=== PATIENT | female | born 1965 | race American Indian/Alaskan Native ===

== ENCOUNTER 2018-12-14 09:02 | Inpatient (IN) | payer MEDICARE ==
[2018-12-14] MEDS ORDERED: NACL 0.9% 500 ML 500 ML IV ONE (10:24)
[2018-12-14] MEDS ORDERED: ANTIVERT PO ONE (10:24)
[2018-12-14] MEDS ORDERED: ZOFRAN IV ONE (10:24)
--- NOTE | 2018-12-14 10:25 | Emergency Department Report ---
ED General Adult HPI - General Chief complaint: Dizziness Stated complaint: NAUSEA/VOMITING Time Seen by Provider: 12/14/18 10:11 Source: patient, EMS (ems notes not available at time of chart dictation), RN notes reviewed Mode of arrival: Stretcher Limitations: Physical Limitation - History of Present Illness Initial comments: This is a 53-year-old female. The patient is not known to this provider previously. The patient typically follows with Dr. Imtiaz Nguyen. Past medical history includes obesity, obstructive sleep apnea, or documented compliance with CPAP therapy, known history of right posterior cerebral artery aneurysm, 5 mm, previously monitored through physicians in the [facility], obesity. The patient presents to the emergency room today with complaints of dizziness, vertiginous dizziness, unsteady gait. She woke up with these symptoms at 7:30 AM. The patient denies headache, neck pain, chest pain, abdominal pain, shortness of breath. She denies tinnitus, and change in auditory acuity. She denies sore throat and cold symptoms. Her dizzy sensation is intermittent, painless, and does not radiate anywhere. She reports compliance with her medications. -: Sudden Consistency: intermittent Improves with: none Worsens with: none Associated Symptoms: nausea/vomiting - Related Data Home Medications Medication Instructions Recorded Confirmed Last Taken Atorvastatin Calcium [Lipitor] 20 mg PO QHS 06/07/15 12/14/18 Unknown cloNIDine [Catapres] 0.1 mg PO BID 06/07/15 12/14/18 Unknown Amlodipine Besylate [Norvasc] 2.5 mg PO BID 12/14/18 12/14/18 Unknown Carisoprodol [Soma] 350 mg PO DAILY 12/14/18 12/14/18 Unknown Diclofenac 1% 2 gm TP BID 12/14/18 12/14/18 Unknown Duloxetine HCl [Cymbalta] 30 mg PO BID 12/14/18 12/14/18 Unknown Gabapentin [Neurontin] 600 mg PO TID 12/14/18 12/14/18 Unknown Levothyroxine [Synthroid] 150 mcg PO QDAY 12/14/18 12/14/18 Unknown Pantoprazole [Protonix TAB] 40 mg PO QDAY 12/14/18 12/14/18 Unknown busPIRone [Buspar] 30 mg PO BID 12/14/18 12/14/18 Unknown traMADol [Ultram 50 MG tab] 50 mg PO QDAY PRN 12/14/18 12/14/18 Unknown traZODone [Desyrel] 100 mg PO QHS 12/14/18 12/14/18 Unknown Previous Rx's Medication Instructions Recorded Last Taken Type Ibuprofen 400 mg PO Q6H PRN #30 tablet 12/16/18 Unknown Rx Meclizine [Antivert] 25 mg PO TID PRN #20 tablet 12/16/18 Unknown Rx hydroCHLOROthiazide [HCTZ] 50 mg PO QDAY 30 Days tablet 12/16/18 Unknown Rx Allergies Allergy/AdvReac Type Severity Reaction Status Date / Time codeine Allergy Shortness Verified 08/08/14 14:01 of Breath oxycodone HCl [From Percocet] Allergy Hives Verified 08/08/14 14:01 Penicillins Allergy Hives Verified 08/08/14 14:01 Sulfa (Sulfonamide Allergy Hives Verified 08/08/14 14:01 Antibiotics) ED Review of Systems ROS: Stated complaint: NAUSEA/VOMITING Other details as noted in HPI Constitutional: malaise, weakness. denies: fever Eyes: denies: eye pain, eye discharge, vision change ENT: denies: ear pain, throat pain, dental pain, hearing loss, epistaxis, congestion Respiratory: denies: cough Cardiovascular: denies: chest pain Gastrointestinal: nausea. denies: abdominal pain, vomiting Genitourinary: denies: dysuria Musculoskeletal: denies: back pain Skin: denies: lesions Neurological: abnormal gait, vertigo. denies: headache, weakness Psychiatric: anxiety ED Past Medical Hx - Past Medical History Hx Hypertension: Yes Hx CVA: Yes Hx Congestive Heart Failure: No Hx Diabetes: No Hx Pulmonary Embolism: No Hx Sickle Cell Disease: No Hx Seizures: Yes Hx Asthma: No Hx COPD: No Hx Dementia: No Additional medical history: hypothyroid - Surgical History Additional Surgical History: tear duct, tubal ligation, c section, foot reconstruction - Social History Smoking Status: Never Smoker Substance Use Type: Alcohol - Medications Home Medications: Home Medications Medication Instructions Recorded Confirmed Last Taken Type Atorvastatin Calcium [Lipitor] 20 mg PO QHS 06/07/15 12/14/18 Unknown History cloNIDine [Catapres] 0.1 mg PO BID 06/07/15 12/14/18 Unknown History Amlodipine Besylate [Norvasc] 2.5 mg PO BID 12/14/18 12/14/18 Unknown History Carisoprodol [Soma] 350 mg PO DAILY 12/14/18 12/14/18 Unknown History Diclofenac 1% 2 gm TP BID 12/14/18 12/14/18 Unknown History Duloxetine HCl [Cymbalta] 30 mg PO BID 12/14/18 12/14/18 Unknown History Gabapentin [Neurontin] 600 mg PO TID 12/14/18 12/14/18 Unknown History Levothyroxine [Synthroid] 150 mcg PO QDAY 12/14/18 12/14/18 Unknown History Pantoprazole [Protonix TAB] 40 mg PO QDAY 12/14/18 12/14/18 Unknown History busPIRone [Buspar] 30 mg PO BID 12/14/18 12/14/18 Unknown History traMADol [Ultram 50 MG tab] 50 mg PO QDAY PRN 12/14/18 12/14/18 Unknown History traZODone [Desyrel] 100 mg PO QHS 12/14/18 12/14/18 Unknown History Ibuprofen 400 mg PO Q6H PRN #30 tablet 12/16/18 Unknown Rx Meclizine [Antivert] 25 mg PO TID PRN #20 tablet 12/16/18 Unknown Rx hydroCHLOROthiazide [HCTZ] 50 mg PO QDAY 30 Days tablet 12/16/18 Unknown Rx ED Physical Exam - General Limitations: Physical Limitation General appearance: alert, anxious, obese - Head Head exam: Present: atraumatic, normocephalic - Eye Eye exam: Present: normal appearance, PERRL, EOMI, nystagmus (there is multidirectional, non-fatigable nystagmus, horizontal, rotatory, and vertical.) - ENT ENT exam: Present: normal exam, normal orophraynx, mucous membranes moist, TM's normal bilaterally, normal external ear exam - Neck Neck exam: Present: normal inspection, full ROM. Absent: tenderness, meningismus - Respiratory Respiratory exam: Present: normal lung sounds bilaterally. Absent: respiratory distress - Cardiovascular Cardiovascular Exam: Present: regular rate, normal rhythm, normal heart sounds. Absent: bradycardia, tachycardia, irregular rhythm, systolic murmur, diastolic murmur, rubs, gallop - GI/Abdominal GI/Abdominal exam: Present: soft. Absent: distended, tenderness, guarding, rebound, rigid, pulsatile mass - Extremities Exam Extremities exam: Present: normal inspection, full ROM, pedal edema, other (2+ pulses noted in the bilateral upper, lower extremities. Compartments soft. No long bony tenderness. The pelvis is stable.). Absent: calf tenderness - Back Exam Back exam: Present: normal inspection, full ROM. Absent: tenderness, CVA tenderness (R), paraspinal tenderness, vertebral tenderness - Neurological Exam Neurological exam: Present: alert (there is no pass pointing in the bilateral upper extremities.), oriented X3, CN II-XII intact, abnormal gait (patient is not able to walk), other (Extraocular movements intact. Tongue midline. No facial droop. Facial sensation intact to light touch in the V1, V2, V3 distribution bilaterally. 5 and 5 strength in 4 extremities.. Sensation is intact to light touch in 4 extremities.). Absent: motor sensory deficit - Psychiatric Psychiatric exam: Present: normal affect, normal mood - Skin Skin exam: Present: warm, dry, intact, normal color. Absent: rash ED Course Vital Signs 12/14/18 12/14/18 12/14/18 09:14 09:16 09:19 Temperature 97.5 F L Pulse Rate 91 H 89 Respiratory 18 20 Rate Blood Pressure 149/90 Blood Pressure 149/90 [Left] O2 Sat by Pulse 95 94 93 Oximetry 12/14/18 12/14/18 12/14/18 09:30 09:46 10:00 Temperature Pulse Rate 92 H 91 H 88 Respiratory 19 17 16 Rate Blood Pressure 149/90 149/90 121/72 Blood Pressure [Left] O2 Sat by Pulse 92 91 91 Oximetry 12/14/18 12/14/18 12/14/18 10:01 10:16 10:37 Temperature Pulse Rate 93 H 91 H Respiratory 19 17 Rate Blood Pressure 121/72 121/72 121/72 Blood Pressure [Left] O2 Sat by Pulse 96 Oximetry 12/14/18 12/14/18 12/14/18 10:46 10:58 11:00 Temperature Pulse Rate Respiratory 17 13 13 Rate Blood Pressure 121/72 121/72 121/72 Blood Pressure [Left] O2 Sat by Pulse 97 97 98 Oximetry 12/14/18 12/14/18 12/14/18 11:16 11:20 11:30 Temperature Pulse Rate 91 H 87 91 H Respiratory 17 17 17 Rate Blood Pressure 138/82 121/72 121/72 Blood Pressure [Left] O2 Sat by Pulse 93 93 94 Oximetry 12/14/18 12/14/18 12/14/18 11:40 11:50 12:00 Temperature Pulse Rate Respiratory 16 15 16 Rate Blood Pressure 121/72 138/82 129/84 Blood Pressure [Left] O2 Sat by Pulse 95 94 95 Oximetry 12/14/18 12/14/18 12/14/18 12:10 13:44 13:50 Temperature Pulse Rate 110 H Respiratory 16 18 Rate Blood Pressure 129/84 129/84 172/101 Blood Pressure [Left] O2 Sat by Pulse 96 100 95 Oximetry 12/14/18 12/14/18 12/14/18 14:00 14:10 14:20 Temperature Pulse Rate 100 H 99 H 102 H Respiratory 18 17 15 Rate Blood Pressure 152/85 152/85 129/84 Blood Pressure [Left] O2 Sat by Pulse 93 95 95 Oximetry 12/14/18 12/14/18 12/14/18 14:30 14:54 15:00 Temperature Pulse Rate 106 H Respiratory 18 Rate Blood Pressure 129/84 129/84 129/84 Blood Pressure [Left] O2 Sat by Pulse 97 98 95 Oximetry 12/14/18 12/14/18 12/14/18 15:10 15:20 15:30 Temperature Pulse Rate Respiratory Rate Blood Pressure 129/84 129/84 152/85 Blood Pressure [Left] O2 Sat by Pulse 95 95 93 Oximetry 12/14/18 12/14/18 15:40 15:50 Temperature Pulse Rate 104 H Respiratory 20 Rate Blood Pressure 152/85 142/93 Blood Pressure [Left] O2 Sat by Pulse 94 93 Oximetry - Reevaluation(s) Reevaluation #1: 12/14/18 12:04 Differential diagnosis, including but not limited to: Peripheral vertigo, central vertigo, arterial dissection, arterial insufficiency, arterial thrombosis Assessment and plan: 53-year-old female who woke up with sensation of vertigo and unsteady gait, with what appears to be multidirectional non-fatigable nystagmus. The patient has an NIH score of 0. The patient is not a TPA candidate as she woke up with symptoms. Code stroke is called overhead. Noncontrast CT scan of the brain is negative for acute disease. She is treated with meclizine, fluids and Zofran. Discussed with consulting stroke neurology, Dr. Mai Treviño, who agrees that patient is not a TPA candidate, but recommends admission for stroke evaluation, and agrees with acquisition of emergent angiogram of the head and neck to exclude a large vessel occlusion, and dissection. Reevaluation #2: 12/14/18 13:48 Dr Michael Sheppard to admit cta head neck negative ED Medical Decision Making - Lab Data Result diagrams: 12/14/18 10:38 12/16/18 04:28 Vital Signs 12/14/18 12/14/18 12/14/18 09:14 09:16 09:19 Temperature 97.5 F L Pulse Rate 91 H 89 Respiratory 18 20 Rate Blood Pressure 149/90 Blood Pressure 149/90 [Left] O2 Sat by Pulse 95 94 93 Oximetry 12/14/18 12/14/18 12/14/18 09:30 09:46 10:00 Temperature Pulse Rate 92 H 91 H 88 Respiratory 19 17 16 Rate Blood Pressure 149/90 149/90 121/72 Blood Pressure [Left] O2 Sat by Pulse 92 91 91 Oximetry 12/14/18 12/14/18 12/14/18 10:16 10:37 10:46 Temperature Pulse Rate 93 H 91 H Respiratory 19 17 17 Rate Blood Pressure 121/72 121/72 121/72 Blood Pressure [Left] O2 Sat by Pulse 96 97 Oximetry 12/14/18 12/14/18 11:00 11:16 Temperature Pulse Rate 89 Respiratory 13 17 Rate Blood Pressure 121/72 138/82 Blood Pressure [Left] O2 Sat by Pulse 98 95 Oximetry Lab Results 12/14/18 12/14/18 12/14/18 Range/Units 10:38 10:38 10:38 WBC 4.7 (4.5-11.0) K/mm3 RBC 4.30 (3.65-5.03) M/mm3 Hgb 13.0 (10.1-14.3) gm/dl Hct 37.4 (30.3-42.9) % MCV 87 (79-97) fl MCH 30 (28-32) pg MCHC 35 H (30-34) % RDW 15.3 H (13.2-15.2) % Plt Count 212 (140-440) K/mm3 Lymph % (Auto) 20.2 (13.4-35.0) % [place] % (Auto) 7.6 H (0.0-7.3) % Eos % (Auto) 1.2 (0.0-4.3) % Baso % (Auto) 0.6 (0.0-1.8) % Lymph # 1.0 L (1.2-5.4) K/mm3 [place] # 0.4 (0.0-0.8) K/mm3 Eos # 0.1 (0.0-0.4) K/mm3 Baso # 0.0 (0.0-0.1) K/mm3 Seg Neutrophils % 70.4 H (40.0-70.0) % Seg Neutrophils # 3.3 (1.8-7.7) K/mm3 PT 13.1 (12.2-14.9) Sec. INR 0.94 (0.87-1.13) APTT 33.0 (24.2-36.6) Sec. Thrombin Time 17.2 (15.1-19.6) Sec. Sodium (137-145) mmol/L Potassium (3.6-5.0) mmol/L Chloride (98-107) mmol/L Carbon Dioxide (22-30) mmol/L Anion Gap mmol/L BUN (7-17) mg/dL Creatinine (0.7-1.2) mg/dL Estimated GFR ml/min BUN/Creatinine Ratio % Glucose (65-100) mg/dL Calcium (8.4-10.2) mg/dL Total Bilirubin (0.1-1.2) mg/dL AST (5-40) units/L ALT (7-56) units/L Alkaline Phosphatase (35-129) units/L Total Creatine Kinase 183 H (30-135) units/L CK-MB (CK-2) 3.6 (0.0-4.0) ng/mL CK-MB (CK-2) Rel Index 1.9 (0-4) Troponin T < 0.010 (0.00-0.029) ng/mL Total Protein (6.3-8.2) g/dL Albumin (3.9-5) g/dL Albumin/Globulin Ratio % 12/14/ Range/Units 10:38 WBC (4.5-11.0) K/mm3 RBC (3.65-5.03) M/mm3 Hgb (10.1-14.3) gm/dl Hct (30.3-42.9) % MCV (79-97) fl MCH (28-32) pg MCHC (30-34) % RDW (13.2-15.2) % Plt Count (140-440) K/mm3 Lymph % (Auto) (13.4-35.0) % [place] % (Auto) (0.0-7.3) % Eos % (Auto) (0.0-4.3) % Baso % (Auto) (0.0-1.8) % Lymph # (1.2-5.4) K/mm3 [place] # (0.0-0.8) K/mm3 Eos # (0.0-0.4) K/mm3 Baso # (0.0-0.1) K/mm3 Seg Neutrophils % (40.0-70.0) % Seg Neutrophils # (1.8-7.7) K/mm3 PT (12.2-14.9) Sec. INR (0.87-1.13) APTT (24.2-36.6) Sec. Thrombin Time (15.1-19.6) Sec. Sodium 138 (137-145) mmol/L Potassium 3.4 L (3.6-5.0) mmol/L Chloride 101.1 (98-107) mmol/L Carbon Dioxide 27 (22-30) mmol/L Anion Gap 13 mmol/L BUN 12 (7-17) mg/dL Creatinine 0.6 L (0.7-1.2) mg/dL Estimated GFR > 60 ml/min BUN/Creatinine Ratio 20 % Glucose 128 H (65-100) mg/dL Calcium 8.8 (8.4-10.2) mg/dL Total Bilirubin 0.20 (0.1-1.2) mg/dL AST 17 (5-40) units/L ALT 16 (7-56) units/L Alkaline Phosphatase 74 (35-129) units/L Total Creatine Kinase (30-135) units/L CK-MB (CK-2) (0.0-4.0) ng/mL CK-MB (CK-2) Rel Index (0-4) Troponin T (0.00-0.029) ng/mL Total Protein 7.6 (6.3-8.2) g/dL Albumin 3.8 L (3.9-5) g/dL Albumin/Globulin Ratio 1.0 % - EKG Data -: EKG Interpreted by Me EKG shows normal: sinus rhythm Rate: normal - EKG Data 12/14/18 12:06 Sinus, 90 bpm, normal axis, QTC prolonged, low voltage in the lateral leads, not having chest pain, left ventricular hypertrophy, not consistent with ST elevation myocardial infarction. EKG today appears to be grossly unchanged from prior EKG from June 2015. - Radiology Data Radiology results: pending, report reviewed, image reviewed Critical care attestation.: If time is entered above; I have spent that time in minutes in the direct care of this critically ill patient, excluding procedure time. ED Disposition Clinical Impression: Unsteady gait Disposition: -09 OP ADMIT IP TO THIS HOSP Is pt being admited?: Yes Does the pt Need Aspirin: Yes Condition: Good
--- NOTE | 2018-12-14 10:40 | Cat Scan Report ---
CT HEAD WITHOUT CONTRAST: HISTORY: Stroke symptoms. TECHNIQUE: Sequential 2.5mm CT images. COMPARISON: 06/07/15. FINDINGS: Cerebral Parenchyma: Within normal limits. Cerebellum: Within normal limits. Brainstem: Within normal limits. Ventricles: Normal. Sella: Normal. Extra-axial spaces: Normal. Basal Cisterns: Normal. Intracranial Hemorrhage: None. Midline Shift: None. Calvarium: Normal. Sinuses: There is near-complete opacification of the right frontal sinus. The remaining visualized sinuses are clear. Mastoid Air Cells: Normal. Visualized Orbits: Normal. IMPRESSION: Cranial CT scan within normal limits. Chronic right frontal sinus disease. These findings were discussed with Dr. Hernandez in the emergency department at 1035 hrs.
[2018-12-14 10:49] LABS: Basophils % (Auto) 0.6 % (0.0-1.8); Eosinophils # (Auto) 0.1 K/mm3 (0.0-0.4); Eosinophils % (Auto) 1.2 % (0.0-4.3); Hematocrit 37.4 % (30.3-42.9); Lymphocytes % (Auto) 20.2 % (13.4-35.0); Mean Corpuscular HGB Conc 35 % (30-34); Mean Corpuscular Volume 87 fl (79-97); Monocytes # (Auto) 0.4 K/mm3 (0.0-0.8); Monocytes % (Auto) 7.6 % (0.0-7.3); Platelet Count 212 K/mm3 (140-440); Red Cell Distribution Width 15.3 % (13.2-15.2)
[2018-12-14 10:59] LABS: INR 0.94 (0.87-1.13)
[2018-12-14 11:00] LABS: Thrombin Time 17.2 Sec. (15.1-19.6)
[2018-12-14 11:20] LABS: Creatine Kinase MB 3.6 ng/mL (0.0-4.0)
[2018-12-14 11:21] LABS: Alanine Aminotransferase 16 units/L (7-56); Albumin 3.8 g/dL (3.9-5); BUN/Creatinine Ratio 20; Blood Urea Nitrogen 12 mg/dL (7-17); Calcium 8.8 mg/dL (8.4-10.2); Hemolysis Index 3
[2018-12-14] MEDS ORDERED: KCL 20MEQ/100ML 20 MEQ/100 ML BAG IV ONE (12:06)
[2018-12-14] MEDS ORDERED: REGLAN IV ONE (12:29)
--- NOTE | 2018-12-14 13:23 | Cat Scan Report ---
CTA NECK: HISTORY: Stroke. TECHNIQUE: Helical CT following IV contrast. Sagittal and coronal reformatted images. Rotational MIP images. Stenosis was calculated using NASCET criteria with the distal ICA being standard diameter. FINDINGS: The visualized aortic arch, innominate artery and proximal bilateral subclavian arteries are widely patent with less than 20% stenosis. Within the right carotid system: Less than 20% stenosis. Within the left carotid system: Less than 20% stenosis. The cervical vertebral arteries are patent with less than 20% stenosis. IMPRESSION: Unremarkable CTA of the neck.
--- NOTE | 2018-12-14 13:27 | Cat Scan Report ---
CTA HEAD: HISTORY: Stroke symptoms. TECHNIQUE: Helical CT images after IV contrast with 2.5mm reformations. Sagittal and coronal reformats. Rotational MIP images. 3D volume rendering technique. FINDINGS: The arterial structures of the anterior and posterior circulations are patent throughout. No evidence for stenosis, occlusion or aneurysm. IMPRESSION: Unremarkable CTA head.
[2018-12-14] MEDS ORDERED: BABY ASPIRIN PO ONE (13:49)
[2018-12-14] MEDS: KCL 10MEQ/100ML 10 MEQ/100 ML BAG IV SCH ×2 (14:09→15:44)
[2018-12-14] MEDS ORDERED: ULTRAM PO PRN (16:42)
[2018-12-14] MEDS: SYNTHROID PO SCH (17:00)
[2018-12-14] MEDS: SOMA PO SCH (19:02)
[2018-12-14] MEDS: HCTZ PO SCH (19:02)
[2018-12-14] MEDS: PROTONIX PO SCH (19:02)
[2018-12-14] MEDS ORDERED: NON-FORMULARY (Gabapentin [Neurontin] 600 MG) PO SCH (20:00)
[2018-12-14] MEDS ORDERED: NON-FORMULARY (Amlodipine Besylate [Norvasc] 2.5 MG) PO SCH (22:00)
[2018-12-14] MEDS: BUSPAR PO SCH (22:08)
[2018-12-14] MEDS: NEURONTIN PO SCH (22:08)
[2018-12-14] MEDS: NORVASC PO SCH (22:09)
[2018-12-14] MEDS: CATAPRES PO SCH (22:09)
[2018-12-14] MEDS: DESYREL PO SCH (22:09)
[2018-12-14] MEDS: CYMBALTA PO SCH (22:24)
[2018-12-14] MEDS ORDERED: ZOFRAN IV PRN (22:43)
[2018-12-14] MEDS ORDERED: SODIUM CHLORIDE FLUSH SYRINGE 10 ML IV PRN ×2 (22:43→22:47)
[2018-12-14] MEDS ORDERED: PERCOCET 5/325 PO PRN (22:43)
[2018-12-14] MEDS ORDERED: DILAUDID IV PRN (22:43)
[2018-12-14] MEDS ORDERED: TYLENOL PO PRN (22:43)
--- NOTE | 2018-12-14 23:32 | History and Physical Report ---
History of Present Illness Date of examination: 12/14/18 Date of admission: 12/14/18 14:43 Chief complaint: Dizziness and unsteady gait since morning History of present illness: 53-year-old female with history of hypertension hyperlipidemia and depression comes in for acute onset of dizziness and unsteady gait since a.m. Patient woke up around 7:30 AM and had severe dizziness with feeling of room spinning around. Also unsteady gait like a drunken woman. No nasal regurgitation of fluids. No diplopia. No dysphagia or dysphonia. Patient vomited couple of times since morning. Patient is on CPAP for sleep apnea. 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 Past Medical History Hypertension: Yes CVA: Yes no residual deficits Seizures: Yes Additional medical history: hypothyroid Surgical History Additional Surgical History: tear duct surgery, tubal ligation, c section, foot reconstruction Social History Smoking Status: Never Smoker Substance Use Type: Alcohol Family history HTN -Medications Home Medications: Home Medications Medication Instructions Recorded Confirmed Last Taken Type ALPRAZolam [Xanax TAB] 0.5 mg PO DAILY PRN 06/07/15 06/07/15 Unknown History Atorvastatin Calcium [Lipitor] 20 mg PO QHS 06/07/15 06/07/15 Unknown History Gabapentin [Neurontin] 300 mg PO QHS 06/07/15 06/07/15 Unknown History NIFEdipine XL [Procardia Xl] 30 mg PO QDAY 06/07/15 06/07/15 Unknown History cloNIDine [Catapres] 0.1 mg PO BID 06/07/15 06/07/15 Unknown History traZODone [Desyrel] 50 mg PO QHS 06/07/15 06/07/15 Unknown History Aspirin [Aspirin TAB] 325 mg PO QDAY #30 tablet 06/11/15 Unknown Rx traMADol [Ultram 50 MG tab] 50 mg PO Q6HR PRN #10 tablet 06/11/15 Unknown Rx Azithromycin [Zithromax] 250 mg PO QDAY #4 tablet 06/12/15 Unknown Rx Review of Systems ROS: Stated complaint: NAUSEA/VOMITING Other details as noted in HPI Constitutional: malaise, weakness. denies: fever Eyes: denies: eye pain, eye discharge, vision change ENT: denies: ear pain, throat pain, dental pain, hearing loss, epistaxis, conge stion Respiratory: denies: cough Cardiovascular: denies: chest pain Gastrointestinal: nausea. denies: abdominal pain, vomiting Genitourinary: denies: dysuria Musculoskeletal: denies: back pain Skin: denies: lesions Neurological: abnormal gait, vertigo. denies: headache, weakness Psychiatric: anxiety Medications and Allergies Allergies Allergy/AdvReac Type Severity Reaction Status Date / Time acetaminophen [From Percocet] Allergy Hives Verified 08/08/14 14:01 codeine Allergy Shortness Verified 08/08/14 14:01 of Breath oxycodone HCl [From Percocet] Allergy Hives Verified 08/08/14 14:01 Penicillins Allergy Hives Verified 08/08/14 14:01 Sulfa (Sulfonamide Allergy Hives Verified 08/08/14 14:01 Antibiotics) Home Medications Medication Instructions Recorded Confirmed Last Taken Type Atorvastatin Calcium [Lipitor] 20 mg PO QHS 06/07/15 12/14/18 Unknown History cloNIDine [Catapres] 0.1 mg PO BID 06/07/15 12/14/18 Unknown History Amlodipine Besylate [Norvasc] 2.5 mg PO BID 12/14/18 12/14/18 Unknown History Carisoprodol [Soma] 350 mg PO DAILY 12/14/18 12/14/18 Unknown History Diclofenac 1% 2 gm TP BID 12/14/18 12/14/18 Unknown History Duloxetine HCl [Cymbalta] 30 mg PO BID 12/14/18 12/14/18 Unknown History Gabapentin [Neurontin] 600 mg PO TID 12/14/18 12/14/18 Unknown History Levothyroxine [Synthroid] 150 mcg PO QDAY 12/14/18 12/14/18 Unknown History Pantoprazole [Protonix] 40 mg PO QDAY 12/14/18 12/14/18 Unknown History busPIRone [Buspar] 30 mg PO BID 12/14/18 12/14/18 Unknown History hydroCHLOROthiazide [HCTZ] 25 mg PO QDAY 12/14/18 12/14/18 Unknown History traMADol [Ultram 50 MG tab] 50 mg PO QDAY PRN 12/14/18 12/14/18 Unknown History traZODone [Desyrel] 100 mg PO QHS 12/14/18 12/14/18 Unknown History Active Meds: Active Medications Acetaminophen (Tylenol) 650 mg PO Q4H PRN PRN Reason: Pain MILD(1-3)/Fever >100.5/BURT Amlodipine Besylate (Norvasc) 2.5 mg PO BID [facility] Last Admin: 12/14/18 22:09 Dose: 2.5 mg Documented by: Aspirin (Aspirin) 325 mg PO QDAY [facility] Atorvastatin Calcium (Lipitor) 20 mg PO QHS [facility] Last Admin: 12/14/18 22:08 Dose: 20 mg Documented by: Atorvastatin Calcium (Lipitor) 40 mg PO QHS [facility] Buspirone HCl (Buspar) 30 mg PO BID [facility] Last Admin: 12/14/18 22:08 Dose: 30 mg Documented by: Carisoprodol (Soma) 350 mg PO DAILY [facility] Last Admin: 12/14/18 19:02 Dose: 350 mg Documented by: Clonidine HCl (Catapres) 0.1 mg PO BID [facility] Last Admin: 12/14/18 22:09 Dose: 0.1 mg Documented by: Duloxetine HCl (Cymbalta) 30 mg PO BID [facility] Last Admin: 12/14/18 22:24 Dose: 30 mg Documented by: Enoxaparin Sodium (Lovenox) 40 mg SUB-Q QDAY [facility] Famotidine (Pepcid) 20 mg IV BID [facility] Gabapentin (Neurontin) 300 mg PO TID [facility] Last Admin: 12/14/18 22:08 Dose: 300 mg Documented by: Hydrochlorothiazide (Hctz) 25 mg PO QDAY [facility] Last Admin: 12/14/18 19:02 Dose: 25 mg Documented by: Hydromorphone HCl (Dilaudid) 0.5 mg IV Q3H PRN PRN Reason: Pain , Severe (7-10) Dextrose/Sodium Chloride (D5ns) 1,000 mls @ 100 mls/hr IV DIRECT [facility] Levothyroxine Sodium (Synthroid) 150 mcg PO QDAY [facility] Last Admin: 12/14/18 17:00 Dose: Not Given Documented by: Ondansetron HCl (Zofran) 4 mg IV Q8H PRN PRN Reason: Nausea And Vomiting Oxycodone/Acetaminophen (Percocet 5/325) 1 tab PO Q6H PRN PRN Reason: Pain, Moderate (4-6) Pantoprazole Sodium (Protonix) 40 mg PO QDAY [facility] Last Admin: 12/14/18 19:02 Dose: 40 mg Documented by: Sodium Chloride (Sodium Chloride Flush Syringe 10 Ml) 10 ml IV BID [facility] Sodium Chloride (Sodium Chloride Flush Syringe 10 Ml) 10 ml IV PRN PRN PRN Reason: LINE FLUSH Sodium Chloride (Sodium Chloride Flush Syringe 10 Ml) 10 ml IV PRN PRN PRN Reason: LINE FLUSH Tramadol HCl (Ultram) 50 mg PO QDAY PRN PRN Reason: Pain Trazodone HCl (Desyrel) 100 mg PO QHS [facility] Last Admin: 12/14/18 22:09 Dose: 100 mg Documented by: Exam - Constitutional Vitals: Temp Pulse Resp BP Pulse Ox 97.7 F 89 18 146/90 100 12/14/18 18:04 12/14/18 22:09 12/14/18 18:04 12/14/18 22:09 12/14/18 19:51 General appearance: Present: no acute distress, well-nourished - EENT Eyes: Present: PERRL ENT: hearing intact, clear oral mucosa - Neck Neck: Present: supple, normal ROM - Respiratory Respiratory effort: normal Respiratory: bilateral: CTA - Cardiovascular Heart rate: 90 Rhythm: regular Heart Sounds: Present: S1 & S2. Absent: rub, click - Extremities Extremities: pulses symmetrical, No edema Peripheral Pulses: within normal limits - Abdominal General gastrointestinal: Present: soft, non-tender, non-distended, normal bowel sounds Female genitourinary: Present: normal - Rectal Rectal Exam: deferred - Integumentary Integumentary: Present: clear, warm, dry - Musculoskeletal Musculoskeletal: gait normal, strength equal bilaterally - Psychiatric Psychiatric: appropriate mood/affect, intact judgment & insight - Neurologic Neurologic: CNII-XII intact (no cranial nerve deficits), moves all extremities, other (unsteady gait) - Allied Health Allied health notes reviewed: nursing, case management Results - Labs CBC & Chem 7: 12/14/18 10:38 12/14/18 10:38 Labs: Laboratory Last Values WBC 4.7 K/mm3 (4.5-11.0) 12/14/18 10:38 RBC 4.30 M/mm3 (3.65-5.03) 12/14/18 10:38 Hgb 13.0 gm/dl (10.1-14.3) 12/14/18 10:38 Hct 37.4 % (30.3-42.9) 12/14/18 10:38 MCV 87 fl (79-97) 12/14/18 10:38 MCH 30 pg (28-32) 12/14/18 10:38 MCHC 35 % (30-34) H 12/14/18 10:38 RDW 15.3 % (13.2-15.2) H 12/14/18 10:38 Plt Count 212 K/mm3 (140-440) 12/14/18 10:38 Lymph % (Auto) 20.2 % (13.4-35.0) 12/14/18 10:38 [place] % (Auto) 7.6 % (0.0-7.3) H 12/14/18 10:38 Eos % (Auto) 1.2 % (0.0-4.3) 12/14/18 10:38 Baso % (Auto) 0.6 % (0.0-1.8) 12/14/18 10:38 Lymph # 1.0 K/mm3 (1.2-5.4) L 12/14/18 10:38 [place] # 0.4 K/mm3 (0.0-0.8) 12/14/18 10:38 Eos # 0.1 K/mm3 (0.0-0.4) 12/14/18 10:38 Baso # 0.0 K/mm3 (0.0-0.1) 12/14/18 10:38 Seg Neutrophils % 70.4 % (40.0-70.0) H 12/14/18 10:38 Seg Neutrophils # 3.3 K/mm3 (1.8-7.7) 12/14/18 10:38 PT 13.1 Sec. (12.2-14.9) 12/14/18 10:38 INR 0.94 (0.87-1.13) 12/14/18 10:38 APTT 33.0 Sec. (24.2-36.6) 12/14/18 10:38 Thrombin Time 17.2 Sec. (15.1-19.6) 12/14/18 10:38 Sodium 138 mmol/L (137-145) 12/14/18 10:38 Potassium 3.4 mmol/L (3.6-5.0) L 12/14/18 10:38 Chloride 101.1 mmol/L (98-107) 12/14/18 10:38 Carbon Dioxide 27 mmol/L (22-30) 12/14/18 10:38 Anion Gap 13 mmol/L 12/14/18 10:38 BUN 12 mg/dL (7-17) 12/14/18 10:38 Creatinine 0.6 mg/dL (0.7-1.2) L 12/14/18 10:38 Estimated GFR > 60 ml/min 12/14/18 10:38 BUN/Creatinine Ratio 20 % 12/14/18 10:38 Glucose 128 mg/dL (65-100) H 12/14/18 10:38 POC Glucose 128 (70-105) H 12/14/18 10:29 Calcium 8.8 mg/dL (8.4-10.2) 12/14/18 10:38 Total Bilirubin 0.20 mg/dL (0.1-1.2) 12/14/18 10:38 AST 17 units/L (5-40) 12/14/18 10:38 ALT 16 units/L (7-56) 12/14/18 10:38 Alkaline Phosphatase 74 units/L (35-129) 12/14/18 10:38 Total Creatine Kinase 183 units/L (30-135) H 12/14/18 10:38 CK-MB (CK-2) 3.6 ng/mL (0.0-4.0) 12/14/18 10:38 CK-MB (CK-2) Rel Index 1.9 (0-4) 12/14/18 10:38 Troponin T < 0.010 ng/mL (0.00-0.029) 12/14/18 10:38 Total Protein 7.6 g/dL (6.3-8.2) 12/14/18 10:38 Albumin 3.8 g/dL (3.9-5) L 12/14/18 10:38 Albumin/Globulin Ratio 1.0 % 12/14/18 10:38 Short CBC 12/14/18 Range/Units 10:38 WBC 4.7 (4.5-11.0) K/mm3 Hgb 13.0 (10.1-14.3) gm/dl Hct 37.4 (30.3-42.9) % Plt Count 212 (140-440) K/mm3 BMP 12/14/18 10:38 Sodium 138 Potassium 3.4 L Chloride 101.1 Carbon Dioxide 27 BUN 12 Creatinine 0.6 L Glucose 128 H Calcium 8.8 Cardiac Enzymes 12/14/18 Range/Units 10:38 Total Creatine Kinase 183 H (30-135) units/L CK-MB (CK-2) 3.6 (0.0-4.0) ng/mL Troponin T < 0.010 (0.00-0.029) ng/mL Liver Function 12/14/18 Range/Units 10:38 Total Bilirubin 0.20 (0.1-1.2) mg/dL AST 17 (5-40) units/L ALT 16 (7-56) units/L Alkaline Phosphatase 74 (35-129) units/L Albumin 3.8 L (3.9-5) g/dL - Imaging and Cardiology EKG: report reviewed (normal sinus rhythm ,heart rate of 90/m) Imaging and Cardiology: CTA of the neck Unremarkable CTA head Unremarkable CT head There is near complete opacification of the right frontal sinus the remaining visualized sinuses are clear. Assessment and Plan Advance Directives: Yes (full code) VTE prophylaxis?: Chemical Plan of care discussed with patient/family: Yes - Patient Problems (1) CVA (cerebral infarction) Current Visit: No Status: Acute Qualifiers: Cerebral infarction mechanism: thrombosis Precerebral and cerebral artery: posterior cerebral artery, right Qualified Code(s): I63.331 - Cerebral infarction due to thrombosis of right posterior cerebral artery Plan to address problem: Teleneurology consulted The recommendation was to do an MRI of the brain. Differential diagnosis was BPV and they suggested meclizine. They also suggested in house neurology consult CVA protocol including MRI/MRA echocardiogram and carotid duplex scan ordered Aspirin initiated Differential diagnoses of cerebrovascular accident versus BPV Patient does not have any diplopia nasal regurgitation of fluids or dysphagia ruling out posterior inferior cerebellar artery infarct (2) BPV (benign positional vertigo) Current Visit: Yes Status: Acute Qualifiers: Laterality: unspecified laterality Qualified Code(s): H81.10 - Benign paroxysmal vertigo, unspecified ear Plan to address problem: Meclizine initiated High likelihood of BPV (3) Obstructive sleep apnea of adult Onset Date: 06/07/15 Current Visit: No Status: Chronic Plan to address problem: Continue CPAP (4) Hypertension Current Visit: Yes Status: Chronic Qualifiers: Hypertension type: essential hypertension Qualified Code(s): I10 - Essential (primary) hypertension Plan to address problem: Continue antihypertensives (5) Hypothyroidism Current Visit: Yes Status: Chronic Qualifiers: Hypothyroidism type: acquired Qualified Code(s): E03.9 - Hypothyroidism, unspecified Plan to address problem: Continue Synthroid Check TSH (6) Peripheral neuropathy Current Visit: Yes Status: Chronic Qualifiers: Peripheral neuropathy type: polyneuropathy, unspecified Qualified Code(s): G62.9 - Polyneuropathy, unspecified Plan to address problem: Continue gabapentin (7) RADHA (generalized anxiety disorder) Current Visit: Yes Status: Chronic Plan to address problem: Continue BuSpar (8) Depression Current Visit: Yes Status: Chronic Qualifiers: Depression Type: unspecified Qualified Code(s): F32.9 - Major depressive disorder, single episode, unspecified Plan to address problem: Continue Cymbalta (9) GERD (gastroesophageal reflux disease) Current Visit: Yes Status: Chronic Qualifiers: Esophagitis presence: without esophagitis Qualified Code(s): K21.9 - Gastro-esophageal reflux disease without esophagitis Plan to address problem: Continue Protonix (10) Hypokalemia Current Visit: Yes Status: Acute Plan to address problem: Mild Supplemented (11) DVT prophylaxis Current Visit: Yes Status: Acute Plan to address problem: Lovenox initiated and GI prophylaxis initiated
[2018-12-15] MEDS ORDERED: TYLENOL PO PRN (00:02)
[2018-12-15] MEDS ORDERED: ZOFRAN IV PRN (00:02)
[2018-12-15] MEDS ORDERED: SODIUM CHLORIDE FLUSH SYRINGE 10 ML IV PRN (00:02)
[2018-12-15] MEDS ORDERED: K-DUR PO ONE (00:04)
[2018-12-15] MEDS: D5NS 1,000 ML IV SCH ×2 (00:38→09:11)
[2018-12-15] MEDS: PEPCID IV SCH ×3 (00:39→22:27)
[2018-12-15] MEDS ORDERED: PERCOCET 5/325 PO PRN (01:12)
[2018-12-15 02:36] LABS: Alanine Aminotransferase 17 units/L (7-56); Albumin 4.2 g/dL (3.9-5); BUN/Creatinine Ratio 12; Blood Urea Nitrogen 7 mg/dL (7-17); Calcium 8.9 mg/dL (8.4-10.2); Hemolysis Index 5; LDL Cholesterol,Direct 104 mg/dL (50-130)
[2018-12-15 04:07] LABS: Chol/HDL Ratio 2.38 %; HDL Cholesterol 75 mg/dL (40-59)
[2018-12-15] MEDS: NEURONTIN PO SCH ×3 (08:57→22:27)
[2018-12-15] MEDS: SYNTHROID PO SCH (09:00)
[2018-12-15] MEDS: SOMA PO SCH (09:00)
[2018-12-15] MEDS: BUSPAR PO SCH ×2 (09:01→22:26)
[2018-12-15] MEDS: PROTONIX PO SCH (09:02)
[2018-12-15] MEDS: LOVENOX SUB-Q SCH (09:02)
[2018-12-15] MEDS: ASPIRIN PO SCH (09:03)
[2018-12-15] MEDS: SODIUM CHLORIDE FLUSH SYRINGE 10 ML IV SCH ×4 (09:05→23:09)
[2018-12-15] MEDS: HCTZ PO SCH (09:37)
[2018-12-15] MEDS: NORVASC PO SCH ×2 (09:37→22:28)
[2018-12-15] MEDS: CATAPRES PO SCH ×2 (09:37→22:29)
[2018-12-15] MEDS: CYMBALTA PO SCH ×2 (09:39→23:14)
--- NOTE | 2018-12-15 11:04 | Magnetic Resonance Report ---
MRA HEAD WITHOUT CONTRAST HISTORY: Stroke. Blpb-mr-[id number] imaging with MIP reformations of the [place] is submitted. The arteries appear widely patent and free of hemodynamically significant stenosis, aneurysm or dissection. IMPRESSION: Unremarkable MRA head.
--- NOTE | 2018-12-15 11:04 | Magnetic Resonance Report ---
MRI OF THE BRAIN WITHOUT CONTRAST: HISTORY: Stroke PROCEDURE: Multiplanar, multisequence MR imaging of the brain without IV contrast was performed. FINDINGS: Compared to the CT head dated 12/14/18. MRI demonstrates mild nonspecific white matter changes. Otherwise, the remaining brain parenchyma signal intensity and its wolfe white interface are within normal limits on all sequences. No evidence for acute ischemia, hemorrhage or mass. No chronic infarct or extra-axial fluid collection. The midline structures are central. The basal cisterns are patent. Normal ventricular size. The orbital cavities and sella turcica demonstrate no abnormality. The visualized paranasal sinuses and mastoid air cells are well aerated. IMPRESSION: Unremarkable non-enhanced MRI of the brain.
--- NOTE | 2018-12-15 12:29 | Vascular Lab Report ---
PROCEDURE: VL CAROTID DUPLEX BILAT TECHNIQUE: Duplex Doppler ultrasound of the common, internal and external carotid arteries and the v ertebral arteries was performed bilaterally. [place] scale imaging, velocity spectral waveform analysis, and color flow Doppler were employed. HISTORY: stroke COMPARISONS: CTA neck December 14, 2018 . Note: Measurement of carotid stenosis is based on flow velocity values that correlate with the [place] Symptomatic Carotid Endarterectomy Trial (NASCET) based stenosis criteria using the internal carotid artery diameter as the denominator for stenosis calculation. FINDINGS: RIGHT carotid artery: Velocities: ICA PSV: 92 cm/sec ICA End diastolic: 26 cm/sec CCA PSV: 115 cm/sec IC/CC ratio: 0.6 8 Plaque/color flow: No significant plaque without significant spectral broadening or abnormal color f low . RIGHT vertebral artery: Antegrade systolic and diastolic flow LEFT carotid artery: Velocities: ICA PSV: 82 cm/sec ICA End diastolic: 37 cm/sec CCA PSV: 120 cm/sec IC/CC ratio: 0.6 8 Plaque/color flow: No significant plaque without significant spectral broadening or abnormal color f low . LEFT vertebral artery: Antegrade systolic and diastolic flow IMPRESSION: 1. RIGHT carotid: No hemodynamically significant (less than 50 percent) internal carotid artery beulah nosis. 2. LEFT carotid: No hemodynamically significant (less than 50 percent) internal carotid artery sten osis. 3. Vertebral arteries: Bilaterally antegrade. This document is electronically signed by Yagn Young MD., December 15 2018 12:27:18 PM ET
[2018-12-15] MEDS: K-DUR PO SCH ×2 (13:54→18:11)
[2018-12-15] MEDS: ANTIVERT PO PRN (14:51)
[2018-12-15] MEDS: TYLENOL PO PRN ×2 (14:51→22:36)
--- NOTE | 2018-12-15 17:34 | Progress Note ---
Assessment and Plan Assessment and plan: Unsteady gait anddizziness Admitted MRI Brain negative for stroke neurology consulted Hypertension Monitor BP Hyperlipidemia continue statin Depression Continue anti-depressants Full code status History Interval history: Unsteady gait dizziness Hospitalist Physical - Physical exam Narrative exam: GEN: Not in acute distress, lying in bed,morbidly obese HEENT: Normocephalic, atraumatic, Neck: supple, No JVD Lungs: Clear to auscultation bilat, no crackles, no wheeze Abd:soft, non tender, non distended, normal bowel sounds Ext: No edema, no clunbbing, no cyanosis Neuro:Awake,alert,oriented X 3, no focal signs Skin:No rash Psych: normal mood - Constitutional Vitals: Temp Pulse Resp BP Pulse Ox 97.9 F 88 18 145/87 98 12/15/18 05:36 12/15/18 09:37 12/15/18 05:36 12/15/18 09:37 12/15/18 10:00 General appearance: Present: no acute distress Results - Labs CBC & Chem 7: 12/14/18 10:38 12/15/18 02:05 Labs: Laboratory Last Values WBC 4.7 K/mm3 (4.5-11.0) 12/14/18 10:38 RBC 4.30 M/mm3 (3.65-5.03) 12/14/18 10:38 Hgb 13.0 gm/dl (10.1-14.3) 12/14/18 10:38 Hct 37.4 % (30.3-42.9) 12/14/18 10:38 MCV 87 fl (79-97) 12/14/18 10:38 MCH 30 pg (28-32) 12/14/18 10:38 MCHC 35 % (30-34) H 12/14/18 10:38 RDW 15.3 % (13.2-15.2) H 12/14/18 10:38 Plt Count 212 K/mm3 (140-440) 12/14/18 10:38 Lymph % (Auto) 20.2 % (13.4-35.0) 12/14/18 10:38 [place] % (Auto) 7.6 % (0.0-7.3) H 12/14/18 10:38 Eos % (Auto) 1.2 % (0.0-4.3) 12/14/18 10:38 Baso % (Auto) 0.6 % (0.0-1.8) 12/14/18 10:38 Lymph # 1.0 K/mm3 (1.2-5.4) L 12/14/18 10:38 [place] # 0.4 K/mm3 (0.0-0.8) 12/14/18 10:38 Eos # 0.1 K/mm3 (0.0-0.4) 12/14/18 10:38 Baso # 0.0 K/mm3 (0.0-0.1) 12/14/18 10:38 Seg Neutrophils % 70.4 % (40.0-70.0) H 12/14/18 10:38 Seg Neutrophils # 3.3 K/mm3 (1.8-7.7) 12/14/18 10:38 PT 13.1 Sec. (12.2-14.9) 12/14/18 10:38 INR 0.94 (0.87-1.13) 12/14/18 10:38 APTT 33.0 Sec. (24.2-36.6) 12/14/18 10:38 Thrombin Time 17.2 Sec. (15.1-19.6) 12/14/18 10:38 Sodium 136 mmol/L (137-145) L 12/15/18 02:05 Potassium 3.1 mmol/L (3.6-5.0) L 12/15/18 02:05 Chloride 96.0 mmol/L (98-107) L 12/15/18 02:05 Carbon Dioxide 25 mmol/L (22-30) 12/15/18 02:05 Anion Gap 18 mmol/L 12/15/18 02:05 BUN 7 mg/dL (7-17) 12/15/18 02:05 Creatinine 0.6 mg/dL (0.7-1.2) L 12/15/18 02:05 Estimated GFR > 60 ml/min 12/15/18 02:05 BUN/Creatinine Ratio 12 % 12/15/18 02:05 Glucose 119 mg/dL (65-100) H 12/15/18 02:05 POC Glucose 128 (70-105) H 12/14/18 10:29 Hemoglobin A1c 6.1 % (4-6) H 12/14/18 23:12 Calcium 8.9 mg/dL (8.4-10.2) 12/15/18 02:05 Total Bilirubin 0.30 mg/dL (0.1-1.2) 12/15/18 02:05 AST 20 units/L (5-40) 12/15/18 02:05 ALT 17 units/L (7-56) 12/15/18 02:05 Alkaline Phosphatase 77 units/L (35-129) 12/15/18 02:05 Total Creatine Kinase 183 units/L (30-135) H 12/14/18 10:38 CK-MB (CK-2) 3.6 ng/mL (0.0-4.0) 12/14/18 10:38 CK-MB (CK-2) Rel Index 1.9 (0-4) 12/14/18 10:38 Troponin T < 0.010 ng/mL (0.00-0.029) 12/14/18 10:38 Total Protein 7.9 g/dL (6.3-8.2) 12/15/18 02:05 Albumin 4.2 g/dL (3.9-5) 12/15/18 02:05 Albumin/Globulin Ratio 1.1 % 12/15/18 02:05 Triglycerides 49 mg/dL (2-149) 12/15/18 02:05 Cholesterol 179 mg/dL (50-199) 12/15/18 02:05 LDL Cholesterol Direct 104 mg/dL (50-130) 12/15/18 02:05 HDL Cholesterol 75 mg/dL (40-59) H 12/15/18 02:05 Cholesterol/HDL Ratio 2.38 % 12/15/18 02:05
--- NOTE | 2018-12-15 18:26 | Consultation ---
History of Present Illness Consult date: 12/15/18 Requesting physician: YULI TRUJILLO Reason for Consult: vertigo History of present illness: 53 year old female with a history of hypertension, hyperlipidemia, and sleep apnea, presented to the ER yesterday having awalkened in the morning with vertigo, nausea and vomiting. As she tried to get up she noted that her balance was off and it was difficult to walk. She also noted headache. She has never had a spell like this before. She noted the room spinning not in relation to her head position. It comes sporadically, even when sitting still. Turning in bed or turning her head does not produce or aggravate the spells. Rising to a standing position does not aggravate the symptoms. She feels better today in that the nausea has resolved Vertigo is still occurring sporadically. She denies chest pain, palpitations, weakness or numbness of the extremities. She denies recent viral infection, earache, hearing loss or tinnitis. Past History Past Medical History: hypertension, hyperlipidemia Social history: lives with family Medications and Allergies Allergies Allergy/AdvReac Type Severity Reaction Status Date / Time codeine Allergy Shortness Verified 08/08/14 14:01 of Breath oxycodone HCl [From Percocet] Allergy Hives Verified 08/08/14 14:01 Penicillins Allergy Hives Verified 08/08/14 14:01 Sulfa (Sulfonamide Allergy Hives Verified 08/08/14 14:01 Antibiotics) Home Medications Medication Instructions Recorded Confirmed Last Taken Type Atorvastatin Calcium [Lipitor] 20 mg PO QHS 06/07/15 12/14/18 Unknown History cloNIDine [Catapres] 0.1 mg PO BID 06/07/15 12/14/18 Unknown History Amlodipine Besylate [Norvasc] 2.5 mg PO BID 12/14/18 12/14/18 Unknown History Carisoprodol [Soma] 350 mg PO DAILY 12/14/18 12/14/18 Unknown History Diclofenac 1% 2 gm TP BID 12/14/18 12/14/18 Unknown History Duloxetine HCl [Cymbalta] 30 mg PO BID 12/14/18 12/14/18 Unknown History Gabapentin [Neurontin] 600 mg PO TID 12/14/18 12/14/18 Unknown History Levothyroxine [Synthroid] 150 mcg PO QDAY 12/14/18 12/14/18 Unknown History Pantoprazole [Protonix] 40 mg PO QDAY 12/14/18 12/14/18 Unknown History busPIRone [Buspar] 30 mg PO BID 12/14/18 12/14/18 Unknown History hydroCHLOROthiazide [HCTZ] 25 mg PO QDAY 12/14/18 12/14/18 Unknown History traMADol [Ultram 50 MG tab] 50 mg PO QDAY PRN 12/14/18 12/14/18 Unknown History traZODone [Desyrel] 100 mg PO QHS 12/14/18 12/14/18 Unknown History Active Meds: Active Medications Acetaminophen (Tylenol) 650 mg PO Q4H PRN PRN Reason: Pain MILD(1-3)/Fever >100.5/BURT Last Admin: 12/15/18 14:51 Dose: 650 mg Documented by: Amlodipine Besylate (Norvasc) 2.5 mg PO BID [facility] Last Admin: 12/15/18 09:37 Dose: 2.5 mg Documented by: Aspirin (Aspirin) 325 mg PO QDAY [facility] Last Admin: 12/15/18 09:03 Dose: 325 mg Documented by: Atorvastatin Calcium (Lipitor) 40 mg PO QHS [facility] Buspirone HCl (Buspar) 30 mg PO BID [facility] Last Admin: 12/15/18 09:01 Dose: 30 mg Documented by: Carisoprodol (Soma) 350 mg PO DAILY [facility] Last Admin: 12/15/18 09:00 Dose: 350 mg Documented by: Clonidine HCl (Catapres) 0.1 mg PO BID [facility] Last Admin: 12/15/18 09:37 Dose: 0.1 mg Documented by: Duloxetine HCl (Cymbalta) 30 mg PO BID [facility] Last Admin: 12/15/18 09:39 Dose: 30 mg Documented by: Enoxaparin Sodium (Lovenox) 40 mg SUB-Q QDAY [facility] Last Admin: 12/15/18 09:02 Dose: 40 mg Documented by: Famotidine (Pepcid) 20 mg IV BID [facility] Last Admin: 12/15/18 09:02 Dose: 20 mg Documented by: Gabapentin (Neurontin) 300 mg PO TID [facility] Last Admin: 12/15/18 13:55 Dose: 300 mg Documented by: Hydrochlorothiazide (Hctz) 25 mg PO QDAY [facility] Last Admin: 12/15/18 09:37 Dose: 25 mg Documented by: Hydromorphone HCl (Dilaudid) 0.5 mg IV Q3H PRN PRN Reason: Pain , Severe (7-10) Dextrose/Sodium Chloride (D5ns) 1,000 mls @ 100 mls/hr IV DIRECT [facility] Last Admin: 12/15/18 09:11 Dose: 100 mls/hr Documented by: Levothyroxine Sodium (Synthroid) 150 mcg PO QDAY [facility] Last Admin: 12/15/18 09:00 Dose: 150 mcg Documented by: Meclizine HCl (Antivert) 12.5 mg PO Q12H PRN PRN Reason: Vertigo Last Admin: 12/15/18 14:51 Dose: 12.5 mg Documented by: Ondansetron HCl (Zofran) 4 mg IV Q8H PRN PRN Reason: Nausea And Vomiting Oxycodone/Acetaminophen (Percocet 5/325) 1 tab PO Q6H PRN PRN Reason: Pain, Moderate (4-6) Pantoprazole Sodium (Protonix) 40 mg PO QDAY [facility] Last Admin: 12/15/18 09:02 Dose: 40 mg Documented by: Sodium Chloride (Sodium Chloride Flush Syringe 10 Ml) 10 ml IV BID [facility] Last Admin: 12/15/18 09:40 Dose: 10 ml Documented by: Sodium Chloride (Sodium Chloride Flush Syringe 10 Ml) 10 ml IV BID [facility] Last Admin: 12/15/18 09:05 Dose: 10 ml Documented by: Sodium Chloride (Sodium Chloride Flush Syringe 10 Ml) 10 ml IV PRN PRN PRN Reason: LINE FLUSH Tramadol HCl (Ultram) 50 mg PO QDAY PRN PRN Reason: Pain Trazodone HCl (Desyrel) 100 mg PO QHS [facility] Last Admin: 12/14/18 22:09 Dose: 100 mg Documented by: Review of Systems All systems: negative Ears, nose, mouth and throat: headache, vertigo, no ear pain, no tinnitis, no decreased hearing, no nasal congestion, no sinus pressure Neurological: ataxia, lack of coordination, vertigo, balance difficulties, gait dysfunction, no weakness, no parathesias, no numbness, no tingling, no syncope, no double vision, no loss of vision, no hearing difficulties Physical Examination - Vital Signs Vital Signs: Vital Signs Pulse Ox 95 12/14/18 09:14 - Physical Exam Narrative exam: General - Resting in bed, comfortable. No complaints at the moment. Neurological exam - Speech fluent, oriented times 3. CN's - EOMs intact, no nystagmus,. Face symmetric, V-1 thru V-3 intact. Tongue midline. Hearing intact. Motor - 5/5 throughout. Reflexes - trace throughout. Sensory - intact to touch and pin. Cerebellar - FTN, FFM, Moses intact. Results - Laboratory Findings CBC and BMP: 12/14/18 10:38 12/15/18 02:05 Abnormal Lab Findings: Abnormal Labs 12/14/18 12/14/18 12/14/18 10:29 10:38 10:38 MCHC [address] [place] % (Auto) 7.6 H Lymph # 1.0 L Seg Neutrophils % 70.4 H Sodium Potassium Chloride Creatinine Glucose POC Glucose 128 H Hemoglobin A1c Total Creatine Kinase 183 H Albumin HDL Cholesterol 12/14/18 12/14/18 12/15/18 10:38 23:12 02:[address] [place] % (Auto) Lymph # Seg Neutrophils % Sodium 136 L Potassium 3.4 L 3.1 L Chloride 96.0 L Creatinine 0.6 L 0.6 L Glucose 128 H 119 H POC Glucose Hemoglobin A1c 6.1 H Total Creatine Kinase Albumin 3.8 L HDL Cholesterol 75 H Assessment and Plan 53 yr old female with symptoms of vertigo, nausea and vomiting beginning yesterday a.m. Feels unsteady walking. Symptoms have been coming and going today and are not related to head position or turning. There is no nystagmus. MRI brain, CTA head and neck are without abnormality. Most likely this is an inner ear syndrome such as Menieres Disease. Plan - Continue Meclizine for now. She may require a diuretic or steroids and will ultimately need to be followed by ENT.
[2018-12-15] MEDS: DESYREL PO SCH (22:27)
[2018-12-16] MEDS: D5NS 1,000 ML IV SCH (04:39)
[2018-12-16 05:24] LABS: BUN/Creatinine Ratio 11; Blood Urea Nitrogen 9 mg/dL (7-17); Calcium 8.5 mg/dL (8.4-10.2); Hemolysis Index 5
[2018-12-16] MEDS: ASPIRIN PO SCH (09:23)
[2018-12-16] MEDS: NEURONTIN PO SCH ×2 (09:23→13:19)
[2018-12-16] MEDS: HCTZ PO SCH (09:24)
[2018-12-16] MEDS: NORVASC PO SCH (09:24)
[2018-12-16] MEDS: CATAPRES PO SCH (09:26)
[2018-12-16] MEDS: SYNTHROID PO SCH (09:26)
[2018-12-16] MEDS: CYMBALTA PO SCH (09:26)
[2018-12-16] MEDS: SOMA PO SCH (09:26)
[2018-12-16] MEDS: LOVENOX SUB-Q SCH (09:27)
[2018-12-16] MEDS: PROTONIX PO SCH (09:27)
[2018-12-16] MEDS: ANTIVERT PO PRN (09:27)
[2018-12-16] MEDS: PEPCID IV SCH (09:27)
[2018-12-16] MEDS: SODIUM CHLORIDE FLUSH SYRINGE 10 ML IV SCH ×2 (09:28→09:29)
[2018-12-16] MEDS: BUSPAR PO SCH (09:28)
[2018-12-16] MEDS: TYLENOL PO PRN (09:29)
[2018-12-16] MEDS ORDERED: CLARITIN PO SCH (10:00)
--- NOTE | 2018-12-16 16:36 | Progress Note ---
Assessment and Plan 53 yr old female with symptoms of vertigo, nausea and vomiting beginning yesterday a.m. Feels unsteady walking. Symptoms have been coming and going today and are not related to head position or turning. There is no nystagmus. MRI brain, CTA head and neck are without abnormality. Most likely this is an inner ear syndrome such as Menieres Disease. Plan - Continue Meclizine for now. Increase HCTZ to 50 mg daily Motrin 400 mg q 6 hrs. as needed for headache. Subjective Date of service: 12/16/18 Principal diagnosis: Menieres Interval history: Pt. is still with spells of vertigo and headache. Slept well. Walked in [place] today. Objective - Exam Narrative Exam: General - Resting in bed, comfortable. No complaints at the moment. Neurological exam - Speech fluent, oriented times 3. CN's - EOMs intact, no nystagmus,. Face symmetric, V-1 thru V-3 intact. Tongue midline. Hearing intact. Motor - 5/5 throughout. Reflexes - trace throughout. Sensory - intact to touch and pin. Cerebellar - FTN, FFM, Moses intact. - Vital Sign Vital Signs - 12hr 12/16/18 12/16/18 12/16/18 05:58 09:24 09:26 Temperature 98.2 F Pulse Rate 79 79 Respiratory 18 Rate Blood Pressure 128/73 128/73 128/73 O2 Sat by Pulse 92 Oximetry 12/16/18 11:27 Temperature 97.9 F Pulse Rate 86 Respiratory 22 Rate Blood Pressure 137/89 O2 Sat by Pulse 93 Oximetry - Laboratory Findings CBC and BMP: 12/14/18 10:38 12/16/18 04:28 Abnormal Lab Findings: Abnormal Labs 12/14/18 12/14/18 12/14/18 10:29 10:38 10:38 MCHC 35 H RDW 15.3 H [place] % (Auto) 7.6 H Lymph # 1.0 L Seg Neutrophils % 70.4 H Sodium Potassium Chloride Creatinine Glucose POC Glucose 128 H Hemoglobin A1c Total Creatine Kinase 183 H Albumin HDL Cholesterol 12/14/18 12/14/18 12/15/18 10:38 23:12 02:05 MCHC RDW [place] % (Auto) Lymph # Seg Neutrophils % Sodium 136 L Potassium 3.4 L 3.1 L Chloride 96.0 L Creatinine 0.6 L 0.6 L Glucose 128 H 119 H POC Glucose Hemoglobin A1c 6.1 H Total Creatine Kinase Albumin 3.8 L HDL Cholesterol 75 H 12/16/18 04:28 MCHC RDW [place] % (Auto) Lymph # Seg Neutrophils % Sodium Potassium Chloride Creatinine Glucose 113 H POC Glucose Hemoglobin A1c Total Creatine Kinase Albumin HDL Cholesterol
[2018-12-16] MEDS ORDERED: IBUPROFEN PO PRN (16:38)
--- NOTE | 2018-12-16 17:24 | Discharge Summary ---
Providers - Providers Date of Admission: 12/14/18 14:43 Date of discharge: 12/16/18 Attending physician: YULI TRUJILLO 12/14/18 12:06 Consult to Physician [CONS] Urgent Comment: Consulting Provider: ALICE KIM Physician Instructions: Reason For Exam: cva vertigo 12/14/18 22:43 Consult to Physician [CONS] Routine Comment: Consulting Provider: ANN MARIE MAGANA Physician Instructions: Reason For Exam: acute labyrinthitis vs CVA 12/14/18 22:47 Occupational Therapy Evaluate and Treat [CONS] Routine Comment: Reason For Exam: Neuro deficits Physical Therapy Evaluation and Treat [CONS] Routine Comment: Reason For Exam: Neuro deficits Primary care physician: SHAY MORALES Hospitalization Condition: Good Hospital course: Patient is 53 yo with hypertension, seizure disorder, previous stroke. She presented with vertigo and unsteady gait. She was evaluated in ED, where a CT Head was done but was unremarkable. She was started on Meclizine, Aspirin and admitted. Patient was evaluated by Neurology. MRI Brain was unremarkable. Neurologist diagnosed her with Meniere disease. Vertigo improved and she was discharged home on Meclizine, increased dose of HCTZ, to follow with ENT as outpatient. Total time spent on discharge, 32 mins Disposition: DC- TO HOME OR SELFCARE - Discharge Diagnoses (1) Menieres disease Status: Acute (2) Unsteady gait Status: Acute (3) GERD (gastroesophageal reflux disease) Status: Chronic Qualifiers: Esophagitis presence: without esophagitis Qualified Code(s): K21.9 - Gastro-esophageal reflux disease without esophagitis (4) Hypertension Status: Chronic Qualifiers: Hypertension type: essential hypertension Qualified Code(s): I10 - Essential (primary) hypertension (5) Hypothyroidism Status: Chronic Qualifiers: Hypothyroidism type: acquired Qualified Code(s): E03.9 - Hypothyroidism, unspecified Core Measure Documentation - Palliative Care Palliative Care/ Comfort Measures: Not Applicable - Core Measures Any of the following diagnoses?: none Exam - Physical Exam Narrative exam: GEN: Not in acute distress, lying in bed,morbidly obese HEENT: Normocephalic, atraumatic, Neck: supple, No JVD Lungs: Clear to auscultation bilat, no crackles, no wheeze Abd:soft, non tender, non distended, normal bowel sounds Ext: No edema, no clunbbing, no cyanosis Neuro:Awake,alert,oriented X 3, Skin:No rash Psych: normal mood - Constitutional Vitals: Temp Pulse Resp BP Pulse Ox 97.9 F 86 22 137/89 93 12/16/18 11:27 12/16/18 11:27 12/16/18 11:27 12/16/18 11:27 12/16/18 11:27 Plan Activity: no restrictions Diet: low fat, low cholesterol, low salt Special Instructions: physical therapy Additional Instructions: 1.Follow up with PCP in 1 week. 2.Follow up with ENT in 2-3 days. Follow up with: SHAY MORALES MD [Primary Care Provider] - 3-5 Days Prescriptions: Meclizine [Antivert] 25 mg PO TID PRN #20 tablet PRN Reason: Vertigo hydroCHLOROthiazide [HCTZ] 50 mg PO QDAY 30 Days tablet Ibuprofen 400 mg PO Q6H PRN #30 tablet PRN Reason: Headache
[2018-12-16 17:51] VITALS: BP 129/82
[2018-12-17] MEDS ORDERED: HCTZ PO SCH (10:00)
== END 2018-12-16 19:15 | disposition home or self-care (01) | DRG 149 ==
LOC: ED 09:02 → 3A 14:43 → OBSVTOIN 14:43
PROVIDERS: ADMIT Internal Medicine; ATTEND Internal Medicine
DX: H81.03 Meniere's disease, bilateral (principal); Z68.42 Body mass index [BMI] 45.0-49.9, adult; I10 Essential (primary) hypertension; F32.9 Major depressive disorder, single episode, unspecified; E66.9 Obesity, unspecified; G47.33 Obstructive sleep apnea (adult) (pediatric); E03.9 Hypothyroidism, unspecified; E78.5 Hyperlipidemia, unspecified; H81.10 Benign paroxysmal vertigo, unspecified ear; F41.1 Generalized anxiety disorder; G62.9 Polyneuropathy, unspecified; R11.2 Nausea with vomiting, unspecified; E87.6 Hypokalemia; Z88.0 Allergy status to penicillin; Z98.51 Tubal ligation status; Z79.82 Long term (current) use of aspirin; Z88.2 Allergy status to sulfonamides; Z88.5 Allergy status to narcotic agent; Z88.8 Allergy status to other drugs, medicaments and biological substances
CPT/HCPCS: 36415; 70450; 70496; 70498; 70544; 70551; 80048; 80053; 80061; 82550; 82553; 82962; 83036; 84484; 85025; 85610; 85670; 85730; 93005; 93010; 93306; 93880; 96374; 96375; G0378; A9270-GY; J1650; J2405; J2765; J3480; J7040; J7042; Q9967